=== PATIENT | female | born 2000 | race African-American/Black ===

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

== ENCOUNTER 2025-05-12 13:34 | Outpatient (CLI) | payer OTHER | END 2025-05-12 13:35 | disposition home or self-care (01) | LOC: SCSRAD 13:34 | DX: M54.50 Low back pain, unspecified (principal); M54.2 Cervicalgia; M54.6 Pain in thoracic spine | CPT/HCPCS: 72050; 72072; 72110 ==